=== PATIENT | male | born 1950 | race Caucasian/White ===

== ENCOUNTER 2018-03-03 09:27 | Emergency (ER) | payer MEDICARE, OTHER ==
[~2018-03-03] VITALS: Ht 170.2 cm; Wt 95.2 kg
[2018-03-03] MEDS ORDERED: LEVOTHROID125 MCG PO (09:39)
[2018-03-03] MEDS ORDERED: METOPROL TAR100 MG PO (09:40)
[2018-03-03] MEDS ORDERED: ZITHROMAX250 MG PO (09:53)
[2018-03-03 09:55] VITALS: BP 154/81
== END 2018-03-03 09:55 | disposition home or self-care (01) ==
LOC: ED 09:27
DX: J01.00 Acute maxillary sinusitis, unspecified (principal); R05 Cough; R09.81 Nasal congestion; R09.89 Other specified symptoms and signs involving the circulatory and respiratory systems

== ENCOUNTER 2023-03-23 10:44 | Emergency (ER) | payer MEDICARE ==
[2023-03-23] VITALS (12 sets, daily range): BP systolic 147–202; BP diastolic 60–118
[~2023-03-23] VITALS: Ht 170.2 cm; Wt 95.2 kg
[~2023-03-23 10:44] MED LIST: LEVOTHROID125 MCG PO; METOPROL TAR100 MG PO; ZITHROMAX250 MG PO
[2023-03-23 11:52] LABS: HEMATOCRIT 43.5 % (39.0-50.0); MEAN CELL VOLUME 95.2 fL CALC (80.0-100.0); MEAN CORPUSCULAR HGB 32.8 pG CALC (26.0-32.0); MEAN CORPUSCULAR HGB CONC 34.5 g/dL CAL (32.0-36.0); RED BLOOD COUNT 4.57 mill/uL (4.70-6.10); RED CELL DISTRI WIDTH 12.3 % (11.5-15.5)
[2023-03-23 11:58] LABS: ALBUMIN 4.4 g/dL (3.2-5.0); ALKALINE PHOSPHATASE 88 u/l (38-126); ANION GAP 12 (6-22 (CALC)); BILIRUBIN, TOTAL 0.7 mg/dL (0.2-1.3); BUN 20 mg/dL (8-23); BUN/CREATININE RATIO 17 (12-20 (CALC)); CARBON DIOXIDE 27 mmol/l (22-30); CHLORIDE 107 mmol/l (95-108); CREATININE 1.2 mg/dL (0.7-1.3); GFR FOR AFR.AMER. > 60 ML/MIN (>=60 (CALC)); GFR OTHER RACES 59 ML/MIN (>=60 (CALC)); POTASSIUM 3.9 mmol/l (3.5-5.1); SGOT/AST 45 u/l (19-48); SODIUM 142 mmol/l (137-146); TOTAL PROTEIN 7.9 g/dL (6.3-8.2)
[2023-03-23] MEDS ORDERED: LOSARTAN POTAS100 MG PO (12:02)
[2023-03-23] MEDS ORDERED: PANTOPRAZOLE SO40 M1 PO (12:03)
[2023-03-23] MEDS ORDERED: ASPIRINCHW 81MG PO (12:04)
[2023-03-23] MEDS ORDERED: ATORVASTATIN CA40 MG PO (12:06)
[2023-03-23] MEDS ORDERED: AMLODIPINE BESYL5 MG PO (12:08)
[2023-03-23] MEDS ORDERED: MUCUS RELIEF PO (13:06)
[2023-03-23] MEDS ORDERED: ZITHROMAX250 MG PO (13:06)
== END 2023-03-23 13:19 | disposition home or self-care (01) ==
LOC: ED 10:44
PROVIDERS: Emergency Medicine
DX: J40 Bronchitis, not specified as acute or chronic (principal); I10 Essential (primary) hypertension; E03.9 Hypothyroidism, unspecified; Z20.822 Contact with and (suspected) exposure to COVID-19

== ENCOUNTER 2024-03-06 14:51 | Emergency (ER) | payer MEDICARE ==
[2024-03-06] VITALS (7 sets, daily range): BP systolic 140–174; BP diastolic 60–84
[~2024-03-06] VITALS: Ht 170.2 cm; Wt 97.0 kg
[~2024-03-06 14:51] MED LIST changes: +AMLODIPINE BESYL5 MG PO; +ASPIRINCHW 81MG PO; +ATORVASTATIN CA40 MG PO; +LOSARTAN POTAS100 MG PO; +MUCUS RELIEF PO; +PANTOPRAZOLE SO40 M1 PO
[2024-03-06] MEDS ORDERED: KETOROLAC TROMETHAMINE 15 MG/ML SDV IV ONE (17:40)
[2024-03-06] MEDS ORDERED: methylPREDNISolone SODIUM SUCC 125 MG/2 ML SDV IV ONE (17:45)
[2024-03-06] MEDS ORDERED: COLCHICINE 0.6 MG/TAB PO ONE (17:45)
[2024-03-06 18:00] LABS: BASO% 0.5 % (0-3); EOS% 1.4 % (0-8); HEMATOCRIT 39.7 % (39.0-50.0); HEMOGLOBIN 13.4 g/dl (14.0-18.0); LYMPH% 22.3 % (15-41); MEAN CELL VOLUME 96.6 fL CALC (80.0-100.0); MEAN CORPUSCULAR HGB 32.6 pG CALC (26.0-32.0); MEAN CORPUSCULAR HGB CONC 33.8 g/dL CAL (32.0-36.0); MONO% 12.9 % (2-13); NEUT# 4.19 thou/uL (1.82-7.42); NEUT% 62.9 % (42-76); RED BLOOD COUNT 4.11 mill/uL (4.70-6.10); RED CELL DISTRI WIDTH 12.6 % (11.5-15.5)
[2024-03-06 18:16] LABS: CREATININE 1.1 mg/dL (0.7-1.3)
[2024-03-06] MEDS ORDERED: DECADRON4 MG PO (19:07)
[2024-03-06] MEDS ORDERED: MITIGARE0.6 MG PO (19:07)
[2024-03-06] MEDS ORDERED: ALLOPURINOL100 MG PO (19:07)
== END 2024-03-06 19:00 | disposition home or self-care (01) ==
LOC: ED 14:51
PROVIDERS: Family Medicine
DX: M10.072 Idiopathic gout, left ankle and foot (principal); I10 Essential (primary) hypertension; E03.9 Hypothyroidism, unspecified
CPT/HCPCS: J1885